=== PATIENT | male | born 1955 ===

== ENCOUNTER 2017-09-12 06:31 | Day surgery (SDC) | payer MEDICARE ==
[2017-09-12 07:04] VITALS: TEMP 97
[2017-09-12] MEDS ORDERED: Propofol 10 mg/ml Inj (20 ML) ONE (07:59)
[2017-09-12] MEDS ORDERED: Midazolam 2 MG/2 ML VIAL ONE (07:59)
--- NOTE | 2017-09-12 08:37 | CP.SDSHP ---
Same Day Surgery H & P - History Proposed Procedure: colonoscopy Pre-Op Diagnosis: h/o colon cancer - Previous Medical/Surgical History Cardiac: Hypertension - Allergies Allergies: Allergies No Known Allergies Allergy (Verified 09/12/17 06:53) - Physical Exam Vital Signs: Vital Signs 09/12/17 06:54 Temperature 97 F L Pulse Rate 73 Respiratory 19 Rate Blood Pressure 140/77 O2 Sat by Pulse 98 Oximetry Mental Status: Alert & Oriented x3 Neuro: WNL Heart: WNL Lungs: WNL GI: WNL - {Optional Preform as Required} Abdomen: WNL - Impression Impression: h/o colon cancer, polyp Pt. Evaluated Today:Candidate for Anesthesia & Procedure: Yes - Date & Time Date: 09/12/17 Time: 08:00 Short Stay Discharge - Short Stay Discharge Admitting Diagnosis/Reason for Visit: SCREENING Disposition: HOME/ ROUTINE
[2017-09-12 09:14] VITALS: O2SAT 98
[2017-09-12 09:41] VITALS: BP 110/67; PULSE 65; RESP 17
== END 2017-09-12 09:39 | disposition home or self-care (01) ==
LOC: C.ENDO 06:31
PROVIDERS: ATTEND Internal Medicine Gastroenterology
DX: Z12.11 Encounter for screening for malignant neoplasm of colon (principal); Z85.048 Personal history of other malignant neoplasm of rectum, rectosigmoid junction, and anus; Z93.3 Colostomy status; Z79.899 Other long term (current) drug therapy; E78.5 Hyperlipidemia, unspecified; I10 Essential (primary) hypertension; D12.4 Benign neoplasm of descending colon
CPT/HCPCS: 44389; 88305; J2250; J2704

== ENCOUNTER 2018-11-13 06:15 | Day surgery (SDC) | payer MEDICARE ==
[2018-11-13 06:50] VITALS: BMI 32.5
[2018-11-13] MEDS ORDERED: Lactated Ringer's 1,000 ML IV ONE (08:36)
--- NOTE | 2018-11-13 08:37 | CP.SDSHP ---
Same Day Surgery H & P - History Proposed Procedure: colonoscopy Pre-Op Diagnosis: colon cancer history - Previous Medical/Surgical History Cardiac: Hypertension - Allergies Allergies: Allergies No Known Allergies Allergy (Verified 09/12/17 06:53) - Physical Exam Vital Signs: Vital Signs 11/13/18 06:50 Temperature 98 F Pulse Rate 72 Respiratory 19 Rate Blood Pressure 127/61 O2 Sat by Pulse 97 Oximetry Mental Status: Alert & Oriented x3 Neuro: WNL Heart: WNL Lungs: WNL GI: WNL - {Optional Preform as Required} Abdomen: WNL - Impression Impression: colon cancer Pt. Evaluated Today:Candidate for Anesthesia & Procedure: Yes - Date & Time Date: 11/13/18 Time: 08:20 Short Stay Discharge - Short Stay Discharge Admitting Diagnosis/Reason for Visit: H/O COLON CANCER Disposition: HOME/ ROUTINE
[2018-11-13 09:16] VITALS: TEMP 97.9
[2018-11-13 09:52] VITALS: RESP 19; O2SAT 98
[2018-11-13 10:04] VITALS: BP 121/78; PULSE 65
== END 2018-11-13 10:00 | disposition home or self-care (01) ==
LOC: C.ENDO 06:15
PROVIDERS: ATTEND Internal Medicine Gastroenterology
DX: Z12.11 Encounter for screening for malignant neoplasm of colon (principal); I10 Essential (primary) hypertension; Z85.038 Personal history of other malignant neoplasm of large intestine
CPT/HCPCS: 45378; J7120